=== PATIENT | male | born 1935 | race Caucasian/White ===

== ENCOUNTER 2022-12-23 06:18 | Day surgery (SDC) | payer OTHER ==
[~2022-12-23] VITALS: Ht 167.6 cm; Wt 70.3 kg
[~2022-12-23 06:18] MED LIST: DILTIAZEM ER120 M2 PO; LEVO-T25 MCG PO; LOSARTAN POTASS25 MG; PRAVASTATIN SOD10 MG PO; ZYRTEC10 M3 PO
== END 2022-12-23 11:15 | disposition home or self-care (01) ==
LOC: CIR.AMB 06:18
PROVIDERS: ATTEND Orthopaedic Surgery Hand Surgery
DX: G56.01 Carpal tunnel syndrome, right upper limb (principal); Z20.822 Contact with and (suspected) exposure to COVID-19; I10 Essential (primary) hypertension